=== PATIENT | female | born 2000 | race African-American/Black ===

== ENCOUNTER 2021-10-18 18:58 | Emergency (ER) | payer SELFPAY ==
[~2021-10-18] VITALS: Ht 167.6 cm; Wt 59.0 kg
[2021-10-18 20:53] LABS: BASOPHILS % 0.5 % (0.0-2.0); EOSINOPHILS % 0.2 % (0.0-5.0); HEMATOCRIT. 41.7 % (36.0-48.0); HEMOGLOBIN. 14.6 g/dL (12.0-16.0); LYMPHOCYTES % 16.6 % (20.0-50.0); MEAN CORPUSCULAR HEMOGLOBIN 30.9 pg (28.0-32.0); MEAN CORPUSCULAR VOLUME 88.3 fL (81.0-99.0); MEAN PLATELET VOLUME 9.3 fl (7.4-10.4); MONOCYTES % 7.6 % (2.0-8.0); NEUTROPHILS % 75.1 % (40.0-76.0); PLATELET 406 x1000/uL (130-400); RED BLOOD CELL COUNT 4.72 mill/uL (4.2-5.4); RED CELL DISTRIBUTION WIDTH 12.9 % (11.6-14.6)
[2021-10-18 21:00] LABS: CHLORIDE 107 mEq/L (98-107)
[2021-10-18] MEDS ORDERED: IBUPROFEN 400MG TABLET PO ONE (21:00)
[2021-10-18] MEDS ORDERED: ACETAMINOPHEN 325MG TABLET PO ONE (21:00)
[2021-10-18] MEDS ORDERED: ONDANSETRON HCL 4MG TABLET PO ONE (21:00)
[2021-10-18 21:04] LABS: HCG SCREEN NEGATIVE
[2021-10-18 21:19] LABS: CLARITY URINE CLOUDY (CLEAR); COLOR URINE YELLOW (YELLOW); KETONES URINE 2+ (NEGATIVE); LEUKOCYTE ESTERASE URINE TRACE (NEGATIVE); NITRITE URINE NEGATIVE (NEGATIVE); OCCULT BLOOD URINE NEGATIVE (NEGATIVE); PROTEIN URINE NEGATIVE (NEGATIVE); SPECIFIC GRAVITY URINE 1.012 (1.005-1.030); UROBILINOGEN URINE 0.2 E.U./dL (0.2-1.0)
[2021-10-18] MEDS ORDERED: SODIUM CHLORIDE 0.9% 1,000 ML IV ONE (22:00)
[2021-10-18] MEDS ORDERED: METRONIDAZOLE 500 MG PREMIX 100 ML IV ONE (22:00)
[2021-10-18 23:06] VITALS: BP 121/76
== END 2021-10-18 23:04 | disposition left against medical advice (07) ==
LOC: ER 18:58
DX: K37 Unspecified appendicitis (principal)
CPT/HCPCS: 36415; 74176; 76856; 76857; 80053; 81003; 81025; 83690; 84703; 85025; 99285; J3490; J7030